=== PATIENT | female | born 1970 | race Two or more races ===

== ENCOUNTER 2018-06-01 15:50 | Emergency (ER) | payer MEDICAID | END 2018-06-01 17:59 | disposition home or self-care (01) | LOC: FTE 17:59 | DX: S80.862A Insect bite (nonvenomous), left lower leg, initial encounter (principal); S80.861A Insect bite (nonvenomous), right lower leg, initial encounter; W57.XXXA Bitten or stung by nonvenomous insect and other nonvenomous arthropods, initial encounter; Y92.9 Unspecified place or not applicable | CPT/HCPCS: 99283; Z7502 ==

== ENCOUNTER 2018-06-04 12:30 | Emergency (ER) | payer MEDICAID | END 2018-06-04 13:19 | disposition home or self-care (01) | LOC: FTE 12:30 | DX: R21 Rash and other nonspecific skin eruption (principal) | CPT/HCPCS: 99283; Z7502 ==

== ENCOUNTER 2018-06-09 12:08 | Emergency (ER) | payer MEDICAID | END 2018-06-09 12:47 | disposition home or self-care (01) | LOC: FTE 12:08 | DX: R21 Rash and other nonspecific skin eruption (principal) | CPT/HCPCS: 99283; Z7502 ==